=== PATIENT | female | born 1965 | race Caucasian/White ===

== ENCOUNTER 2017-01-03 14:43 | Emergency (ER) | payer OTHER ==
[~2017-01-03] VITALS: Ht 160 cm; Wt 111.1 kg
[2017-01-03 15:10] VITALS: BP 174/84
[2017-01-03] MEDS ORDERED: HYDROcodone/APAP 5/325MG 1 TAB TABLET PO ONE (15:30)
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
--- NOTE | 2017-01-03 16:00 | RAD ---
CT of the head without contrast, 01/03/2017: History: Injury, neck pain Comparison is made to a study from 06/15/2014. The ventricles are within normal limits in size. There is no shift of the midline structures. There is no evidence of acute intracranial hemorrhage or mass effect. IMPRESSION: No acute intracranial abnormality is detected. CT of the cervical spine without contrast, 01/03/2017: Noncontrast scans were obtained with multiplanar reconstructions produced. There has been a previous anterior spinal fusion with instrumentation from C4 through C5. There is moderate anterior and posterior marginal spurring at C3-4, C5-6 and C6-7. There are moderate degenerative changes involving scattered facet joints bilaterally. There is mild associated central spinal stenosis at several levels due to the spurring as well as mild disc bulges. No acute fracture or dislocation is identified. IMPRESSION: 1. Previous anterior spinal fusion and instrumentation at C4-5. 2. Moderate multilevel degenerative change. 3. No acute bony abnormality is detected. PQRS Compliance Statement: One or more of the following individualized dose reduction techniques were utilized for this examination: 1. Automated exposure control 2. Adjustment of the mA and/or kV according to patient size 3. Use of iterative reconstruction technique
[2017-01-03] MEDS ORDERED: HYDR-971 PO (16:14)
== END 2017-01-03 16:22 | disposition home or self-care (01) ==
LOC: ER 14:43
DX: S16.1XXA Strain of muscle, fascia and tendon at neck level, initial encounter (principal); Z88.0 Allergy status to penicillin; Z88.6 Allergy status to analgesic agent; V43.52XA Car driver injured in collision with other type car in traffic accident, initial encounter; Y93.I9 Activity, other involving external motion; Y92.410 Unspecified street and highway as the place of occurrence of the external cause; Y99.8 Other external cause status
CPT/HCPCS: 70450; 72125; 99284-25

== ENCOUNTER 2020-08-03 20:02 | Emergency (ER) | payer SELFPAY ==
[~2020-08-03] VITALS: Ht 160 cm; Wt 109.0 kg
[~2020-08-03 20:02] MED LIST: HYDR-3164 PO
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
--- NOTE | 2020-08-04 01:46 | RAD ---
EXAM: 1. LEFT ANKLE 3 VIEWS. 2. LEFT FOOT 3 VIEWS. HISTORY: Pain after injury. COMPARISON: None. FINDINGS: No fractures are identified about the ankle. A lucency within the medial corner of the talar dome cliff sures 5 mm and suggests a subchondral cyst. The alignment of the mortise is maintained. Joint spaces are maintained. No fractures are identified in the foot. Alignment is normal. 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 There is a moderate to large plantar calcaneal spur. IMPRESSION: 1. No fracture. 2. A 5 mm subchondral cyst within the medial corner of the talar dome suggests an overlying osteochon dral lesion. Electronically signed by: Melania Hackett MD (08/04/2020 1:44 AM) [facility]
[2020-08-04 02:05] VITALS: BP 145/72
== END 2020-08-04 02:14 | disposition home or self-care (01) ==
LOC: ER 20:02
DX: M93.272 Osteochondritis dissecans, left ankle and joints of left foot (principal); R03.0 Elevated blood-pressure reading, without diagnosis of hypertension; Z90.710 Acquired absence of both cervix and uterus
CPT/HCPCS: 73610; 73630; 99284